=== PATIENT | female | born 1950 | race Caucasian/White ===

== ENCOUNTER 2018-05-09 07:09 | Day surgery (SDC) ==
[2018-05-09] MEDS: TETRACAINE 0.5% UNIT-DOSE OP PRN ×3 (07:25→08:04)
[2018-05-09] MEDS: BETADINE OPTH PREP OP PRN ×2 (07:25→07:52)
[2018-05-09] MEDS: CYCLOGYL 2% OPTH OP PRN ×3 (07:26→07:36)
[2018-05-09] MEDS ORDERED: LIDOCAINE 1% 20 ML MDV ID STA (07:29)
[2018-05-09] MEDS ORDERED: BRIMONIDINE TARTRATE 0.2% OPTH SOL OP PRN (07:29)
[2018-05-09] MEDS ORDERED: ZOFRAN 4 MG/2 ML IVP ONE (07:29)
[2018-05-09 07:34] VITALS: TEMP 98.2
[2018-05-09] MEDS: BSS WITH EPINEPHRINE OP ONE ×2 (07:53→08:04)
[2018-05-09] MEDS: DEX-MOXI-KETOR OPTH INJ 1/0.5/0.4 MG/ML IO ONE ×2 (07:53→08:04)
[2018-05-09] MEDS: LIDOCAINE 1%/PHENYLEPHRINE 1.5% BSS (SURGERY) INTRAOCULA ONE ×2 (07:54→08:04)
[2018-05-09] MEDS ORDERED: DIPRIVAN 20 ML VIAL IVP ONE (07:58)
[2018-05-09] MEDS ORDERED: VERSED ONE (07:58)
[2018-05-09] MEDS ORDERED: ZOFRAN 4 MG/2 ML ONE (07:58)
[2018-05-10 12:59] VITALS: BP 121/67
== END 2018-05-09 09:00 | disposition home or self-care (01) ==
LOC: SURG 07:09
PROVIDERS: ATTEND Ophthalmology
DX: H25.812 Combined forms of age-related cataract, left eye (principal)

== ENCOUNTER 2018-05-23 06:06 | Day surgery (SDC) ==
[2018-05-23] MEDS: CYCLOGYL 2% OPTH OP PRN ×3 (07:25→07:35)
[2018-05-23] MEDS: BETADINE OPTH PREP OP PRN ×2 (07:25→08:00)
[2018-05-23] MEDS: TETRACAINE 0.5% UNIT-DOSE OP PRN ×2 (07:25→08:00)
[2018-05-23] MEDS ORDERED: BRIMONIDINE TARTRATE 0.2% OPTH SOL OP PRN (07:29)
[2018-05-23] MEDS ORDERED: LIDOCAINE 1% 20 ML MDV ID STA (07:29)
[2018-05-23] MEDS ORDERED: ZOFRAN 4 MG/2 ML IVP ONE (07:29)
[2018-05-23 07:41] VITALS: TEMP 98
[2018-05-23] MEDS: BSS WITH EPINEPHRINE OP ONE ×2 (08:15→08:23)
[2018-05-23] MEDS: LIDOCAINE 1%/PHENYLEPHRINE 1.5% BSS (SURGERY) INTRAOCULA ONE ×2 (08:15→08:23)
[2018-05-23] MEDS: DEX-MOXI-KETOR OPTH INJ 1/0.5/0.4 MG/ML IO ONE ×2 (08:16→08:31)
[2018-05-23] MEDS ORDERED: ZOFRAN 4 MG/2 ML ONE (08:21)
[2018-05-23] MEDS ORDERED: VERSED ONE (08:21)
[2018-05-23] MEDS ORDERED: DIPRIVAN 20 ML VIAL IVP ONE (08:21)
[2018-05-24 10:52] VITALS: BP 135/66
== END 2018-05-23 09:20 | disposition home or self-care (01) ==
LOC: SURG 06:06
PROVIDERS: ATTEND Ophthalmology
DX: H25.811 Combined forms of age-related cataract, right eye (principal)